=== PATIENT | male | born 1980 | race Caucasian/White ===

== ENCOUNTER 2020-06-17 13:21 | Emergency (ER) | payer OTHER ==
[2020-06-17 13:27] VITALS: BP 125/74; PULSE 74; TEMP 97.3; BMI 25.0
== END 2020-06-17 14:24 | disposition home or self-care (01) ==
LOC: JERFT 13:21
DX: M79.645 Pain in left finger(s) (principal)
CPT/HCPCS: 73140-TC-LT-FY; 99283-25